=== PATIENT | male | born 1990 | race Caucasian/White ===

== ENCOUNTER 2016-12-06 04:48 | Emergency (ER) | payer BC ==
--- NOTE | 2016-12-06 07:08 | ER Document Report ---
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 Layed around last night feeling lazy. [place] the pressure again when I woke up this morning and thought he should get checked out before going to work. URI 3 weeks ago with cough, got better. Pressure is intermittent, episodes are 1 hour or more every 3 hours, irreardless of activity or inactivity, nothing makes it worse or worse, never had it before. At this time feels a slight pressure since 429, no change since he woke up, also this morning has a "weird numb feeling in left volar forearm". TRAVEL OUTSIDE OF THE [place] IN LAST 30 DAYS: No - Related Data Allergies/Adverse Reactions: No Known Allergies Allergy (Unverified 12/06/16 05:05) Past Medical History - General Information source: Patient - Social History Smoking Status: Former Smoker Frequency of alcohol use: Occasional Drug Abuse: None Lives with: Spouse/Significant other Family History: CAD - elderly grandparents Patient has suicidal ideation: No Patient has homicidal ideation: No - Medical History Medical History: Negative Renal/ Medical History: Denies: Hx Peritoneal Dialysis Surgical Hx: Negative Review of Systems - Review of Systems Constitutional: No symptoms reported EENT: No symptoms reported Cardiovascular: See HPI Respiratory: No symptoms reported Gastrointestinal: No symptoms reported Genitourinary: No symptoms reported Male Genitourinary: No symptoms reported Musculoskeletal: No symptoms reported Skin: No symptoms reported Hematologic/Lymphatic: No symptoms reported Neurological/Psychological: See HPI Physical Exam - Vital signs Vitals: Temp Pulse Resp BP Pulse Ox 97.4 F 95 18 143/77 H 98 12/06/16 05:03 12/06/16 05:03 12/06/16 05:03 12/06/16 05:03 12/06/16 05:03 Interpretation: Hypertensive - mild - General General appearance: Appears well, Alert - HEENT Head: Normocephalic, Atraumatic Eyes: Normal Conjunctiva: Normal Pupils: PERRL Tympanic membrane: Normal Pharynx: Normal Neck: Supple. No: Lymphadenopathy - Respiratory Respiratory status: No respiratory distress Chest status: Nontender Breath sounds: Normal Chest palpation: Normal - Cardiovascular Rhythm: Regular Heart sounds: Normal auscultation Murmur: No - Abdominal Inspection: Normal Distension: No distension Bowel sounds: Normal Tenderness: Nontender Organomegaly: No organomegaly - Back Back: Normal, Nontender - Extremities General upper extremity: Normal inspection, Nontender, Normal color, Normal ROM , Normal temperature General lower extremity: Normal inspection, Nontender, Normal color, Normal ROM , Normal temperature, Normal weight bearing. No: Jacky's sign - Neurological Neuro grossly intact: Yes Cognition: Normal Orientation: AAOx4 [place] Coma Scale Eye Opening: Spontaneous Neo Coma Scale Verbal: Oriented [place] Coma Scale Motor: Obeys Commands Neo Coma Scale Total: 15 Speech: Normal Motor strength normal: LUE, RUE, LLE, RLE Sensory: Normal - Psychological Associated symptoms: Normal affect, Normal mood - Skin Skin Temperature: Warm Skin Moisture: Dry Skin Color: Normal Skin irregularity: negative: Rash Course - Re-evaluation Re-evalutation: 12/06/16 07:53 I have consulted with the supervisory physician per [facility] Guidelines., dr richard., re workup . 12/06/16 11:45 pt OK to be discharged. ekg nsr, chest xray negative, negative labs. will give referal to family practice. Do not believe this is cardiac, PE, dissecting or aneurysm which I considered. OK with dr. richard to discharge the pt home with the proposed plan. - Vital Signs Vital signs: Temp Pulse Resp BP Pulse Ox 97.4 F 95 16 154/77 H 99 12/06/16 05:03 12/06/16 05:03 12/06/16 11:45 12/06/16 12:01 12/06/16 11:47 - Laboratory Result Diagrams: 12/06/16 08:51 12/06/16 08:51 - EKG Interpretation by Me EKG shows normal: Sinus rhythm Rate: Normal Rhythm: NSR Discharge - Discharge Clinical Impression: Chest pain Qualifiers: Chest pain type: unspecified Qualified Code(s): R07.9 - Chest pain, unspecified Disposition: HOME, SELF-CARE Instructions: Aspirin (Cardiac) ([facility]), Chest Pain of Unclear Cause ([facility]) Additional Instructions: Follow-up with [facility] to er any worsening, new symptoms take 81mg aspirain daily Forms: Return to Work
[2016-12-06] MEDS ORDERED: ASPIRIN 81 MG TABLET, CHEWABLE PO ONE (07:48)
--- NOTE | 2016-12-06 08:07 | EKG REPORT ---
SEVERITY:- BORDERLINE ECG - SINUS RHYTHM BORDERLINE Q WAVES IN INFERIOR LEADS INFERIOR Q WAVES, PROBABLY NORMAL VARIATION : Confirmed by: Fran Wright MD 06-Dec-2016 08:07:36
[2016-12-06 09:33] LABS: CHOLESTEROL 162.77 mg/dL (0-200)
[2016-12-06 09:45] LABS: CREATINE KINASE MB 0.89 ng/mL (<4.55); TROPONIN I < 0.012 ng/mL
[2016-12-06 09:55] LABS: ABSOLUTE LYMPHOCYTES (AUTO) 1.4 10^3/uL (0.5-4.7); ABSOLUTE MONOCYTES (AUTO) 0.5 10^3/uL (0.1-1.4); ABSOLUTE NEUT (AUTO) 4.2 10^3/uL (1.7-8.2); BASOPHILS % (AUTO) 0.6 % (0-2); EOSINOPHILS % (AUTO) 0.7 % (0-6); HEMATOCRIT 43.9 % (37.9-51.0); HEMOGLOBIN 14.5 g/dL (13.5-17.0); HGB HCT DIFFERENCE -0.4; LYMPHOCYTES % (AUTO) 22.2 % (13-45); MEAN CORPUSCULAR HEMOGLOBIN 29.7 pg (27.0-33.4); MEAN CORPUSCULAR HGB CONC 32.9 g/dL (32.0-36.0); MEAN CORPUSCULAR VOLUME 90 fl (80-97); RED BLOOD COUNT 4.87 10^6/uL (4.35-5.55); RED CELL DISTRIBUTION WIDTH 12.9 % (11.5-14.0); SEGMENTED NEUTROPHILS % (AUTO) 68.5 % (42-78); WHITE BLOOD COUNT 6.1 10^3/uL (4.0-10.5)
[2016-12-06 09:56] LABS: ALANINE AMINOTRANSFERASE 26 U/L (21-72); ALKALINE PHOSPHATASE 73 U/L (38-126); ANION GAP 9 (5-19); ASPARTATE AMINO TRANSFERASE 18 U/L (17-59); BILIRUBIN,TOTAL 0.8 mg/dL (0.2-1.3); BLOOD UREA NITROGEN 12 mg/dL (7-20); CALCIUM 9.4 mg/dL (8.4-10.2); CARBON DIOXIDE 26 mmol/L (22-30); CHLORIDE 106 mmol/L (98-107); CREATININE RESULT 0.61 mg/dL (0.52-1.25); GLUCOSE 98 mg/dL (75-110); SODIUM 141.4 mmol/L (137-145); TOTAL PROTEIN 7.1 g/dL (6.3-8.2)
[2016-12-06 12:02] VITALS: BP 154/77
== END 2016-12-06 12:02 | disposition home or self-care (01) ==
LOC: ER 04:48
DX: R07.89 Other chest pain (principal); R20.0 Anesthesia of skin; E66.3 Overweight; Z68.41 Body mass index [BMI] 40.0-44.9, adult; Z87.891 Personal history of nicotine dependence; Z82.49 Family history of ischemic heart disease and other diseases of the circulatory system
CPT/HCPCS: 36415; 71020; 80053; 82465; 82550; 82553; 84478; 84484; 85025; 85379; 93005; 93010; 99285